=== PATIENT | female | born 1975 | race Caucasian/White ===

== ENCOUNTER 2016-10-01 20:46 | Emergency (ER) | payer OTHER ==
[~2016-10-01] VITALS: Ht 144.8 cm; Wt 77.1 kg
[2016-10-01 20:56] VITALS: BP 128/75
--- NOTE | 2016-10-01 21:25 | NUR ---
AMBULATED TO ER BED 4
--- NOTE | 2016-10-01 21:32 | NUR ---
PATIENT PRESENTS TO ED WITH FLU LIKE SYMPTOMS, COUGH, PINK EYE . PT DENIES N/V/D; SKIN IS PINK/WARM/DRY; AAOX4 WITH EVEN AND STEADY GAIT; LUNGS CLEAR BL; HR EVEN AND REGULAR; PT DENIES ANY FEVER, CP, SOB AT THIS TIME; PATIENT STATES PAIN OF 10/10 AT THIS TIME; VSS; PATIENT POSITIONED FOR COMFORT; HOB ELEVATED; BEDRAILS UP X2; BED DOWN. ER MD MADE AWARE OF PT STATUS.
--- NOTE | 2016-10-01 22:52 | NUR ---
Patient discharged with v/s stable. Written and verbal after care instructions given and explained. Patient alert, oriented and verbalized understanding of instructions. Ambulatory with steady gait. All questions addressed prior to discharge. ID band removed. Patient advised to follow up with PMD. Rx of ofloxacin and promethazine given. Patient educated on indication of medication including possible reaction and side effects. Opportunity to ask questions provided and answered.
[2016-10-01 22:54] VITALS: BP 125/73
== END 2016-10-01 22:54 | disposition home or self-care (01) ==
LOC: MED 20:46
DX: J06.9 Acute upper respiratory infection, unspecified (principal); H10.9 Unspecified conjunctivitis